=== PATIENT | female | born 1985 | race Native Hawaiian/Other Pacific Islander ===

== ENCOUNTER 2018-04-30 15:51 | Inpatient (IN) | payer BC, MEDICARE ==
[~2018-04-30] VITALS: Ht 162.6 cm; Wt 94.1 kg
[2018-04-30] MEDS ORDERED: LORazepam 2MG/ML-1ML VIAL IV ONE (16:00)
[2018-04-30] MEDS ORDERED: SODIUM CHLORIDE 0.9% 1,000 ML IV ONE (16:00)
[2018-04-30 16:52] LABS: Alanine Aminotransferase 20 U/L (13-56); Albumin 3.7 g/dL (3.4-5.0); Anion Gap 16 (5-15); Aspartate Aminotransferase 11 U/L (15-37); BUN/Creatinine Ratio 10.4; Blood Urea Nitrogen 10 mg/dL (7-18); Calcium 8.1 mg/dL (8.5-10.1); Carbon Dioxide 22 mmol/L (21-32); Chloride 106 mmol/L (98-107); GFR African American 88 mL/min; GFR Non-African American 73 mL/min; Glucose 62 mg/dL (74-106); Potassium 3.9 mmol/L (3.5-5.1); Sodium 144 mmol/L (136-145)
[2018-04-30 16:56] LABS: Alkaline Phosphatase 53 U/L (45-117); Bilirubin, Total 0.3 mg/dL (0.2-1.0); Total Protein 7.7 g/dL (6.4-8.2)
[2018-04-30 17:11] LABS: Basophils # (auto) 0.1 uL; Basophils % (auto) 0.7 % (0.0-2.0); Eosinophils # (auto) 0.2 uL; Eosinophils % (auto) 1.8 % (0.0-7.0); Hematocrit 29.6 % (36.0-46.0); Hemoglobin 8.6 g/dL (12.2-16.2); Lymphocytes # (auto) 1.5 uL; Lymphocytes % (auto) 15.8 % (10.0-50.0); Mean Corpuscular Hemoglobin 16.4 pg (28.0-32.0); Mean Corpuscular Volume 56.5 fL (80.0-100.0); Monocytes # (auto) 0.8 uL; Monocytes % (auto) 8.4 % (0.0-12.0); Neutrophils % (auto) 73.3 % (37.0-80.0); Nucleated Red Blood Cells % 0.1 %; Platelet Count (auto) 419 10^3/uL (140-450); Red Blood Cells 5.23 10^6/uL (4.0-5.20); White Blood Cell 9.5 10^3/uL (4.4-10.8)
[2018-04-30 17:15] LABS: Red Cell Distribution Width 21.8 % (11.8-14.3)
[2018-04-30] MEDS ORDERED: LORazepam 2MG/ML-1ML VIAL IV PRN (18:15)
[2018-04-30] MEDS ORDERED: MORPHINE SULF(PF) 0.5MG/ML 10ML VIAL IV PRN (18:15)
[2018-04-30] MEDS ORDERED: DEXTROSE (50%) 50ML SYRG IV PRN (18:15)
[2018-04-30] MEDS ORDERED: NITROGLYCERIN 0.4 MG SL TAB SL PRN (18:15)
[2018-04-30] MEDS: D5W/SOD CHLO 0.9% 1,000 ML IV SCH (19:42)
[2018-04-30] MEDS: ACCU-CHEK COMFORT CURVE STRIP VI SCH (20:00)
[2018-04-30 22:15] VITALS: BP 112/72
[2018-05-01] MEDS: ACCU-CHEK COMFORT CURVE STRIP VI SCH ×6 (01:38→21:00)
[2018-05-01 05:00] VITALS: BP 113/72
[2018-05-01 06:46] LABS: Cholesterol 106 mg/dL (< 200); HDL Cholesterol 38 mg/dL (40-59); LDL Cholesterol 68 mg/dL (< 100); Triglycerides 52 mg/dL (< 150)
[2018-05-01] MEDS: D5W/SOD CHLO 0.9% 1,000 ML IV SCH ×2 (07:35→20:55)
[2018-05-01 08:39] VITALS: BP 108/63
[2018-05-01] MEDS: PANTOPRAZOLE 40 MG TAB PO SCH (09:49)
[2018-05-01] MEDS ORDERED: LORazepam 2MG/ML-1ML VIAL IV PRN (10:00)
[2018-05-01] MEDS: LEVETIRACETAM 500 MG TAB PO SCH ×2 (11:14→21:12)
[2018-05-01] MEDS ORDERED: LEVETIRACETAM INJ 1,000 MG in D5W 5% 100 ML IV ONE (12:15)
[2018-05-01 12:32] VITALS: BP 114/67
[2018-05-01 17:00] VITALS: BP 106/68
[2018-05-01 22:00] VITALS: BP 121/72
[2018-05-01 22:06] LABS: Urine Bacteria FEW /hpf (None Seen); Urine Blood Negative /uL (Negative); Urine Specific Gravity 1.007 (1.001-1.035); Urine WBC 6 /hpf (0 - 5)
[2018-05-01 22:24] LABS: Alcohol, Urine < 3.0 mg/dL (0-5); Amphetamine Screen, Urine NEGATIVE (NEGATIVE); Barbiturate Scree,Urine NEGATIVE (NEGATIVE); Benzodiazephine Screen, Urine NEGATIVE (NEGATIVE); Cannabinoid Screen, Urine NEGATIVE (NEGATIVE); Cocaine Screen, Urine NEGATIVE (NEGATIVE); Opiate Scree,Urine NEGATIVE (NEGATIVE); Phencyclidine Screen, Urine NEGATIVE (NEGATIVE)
[2018-05-02] MEDS: D5W/SOD CHLO 0.9% 1,000 ML IV SCH ×2 (00:16→23:35)
[2018-05-02] MEDS: ACCU-CHEK COMFORT CURVE STRIP VI SCH ×6 (00:17→22:04)
[2018-05-02 05:16] VITALS: BP 117/73
[2018-05-02 08:15] LABS: Basophils # (auto) 0 uL; Eosinophils # (auto) 0.3 uL; Eosinophils % (auto) 3.9 % (0.0-7.0); Lymphocytes # (auto) 1.2 uL; Lymphocytes % (auto) 17.7 % (10.0-50.0); Monocytes # (auto) 0.7 uL; Neutrophils # (auto) 4.6 uL; Nucleated Red Blood Cells % 0.1 %; Platelet Count (auto) 355 10^3/uL (140-450)
[2018-05-02 08:18] LABS: Basophils % (auto) 0.7 % (0.0-2.0); Hematocrit 26.6 % (36.0-46.0); Hemoglobin 7.8 g/dL (12.2-16.2); Mean Corpuscular Hemoglobin 16.4 pg (28.0-32.0); Mean Corpuscular Hgb Conc. 29.3 g/dL (32.0-36.0); Monocytes % (auto) 10.4 % (0.0-12.0); Neutrophils % (auto) 67.3 % (37.0-80.0); Red Blood Cells 4.75 10^6/uL (4.0-5.20); White Blood Cell 6.9 10^3/uL (4.4-10.8)
[2018-05-02 08:26] LABS: BUN/Creatinine Ratio 10.3; Calcium 7.9 mg/dL (8.5-10.1); Potassium 3.5 mmol/L (3.5-5.1)
[2018-05-02 08:30] LABS: Red Cell Distribution Width 21.7 % (11.8-14.3)
[2018-05-02 09:00] VITALS: BP 100/60
[2018-05-02] MEDS ORDERED: SODIUM FERR GLUC 62.5MG/5ML 125 MG in SODIUM CHL 0.9% 100 ML IV ONE (09:30)
[2018-05-02 10:22] LABS: % Iron Saturation 5.6 % (15-50)
[2018-05-02] MEDS: LEVETIRACETAM 500 MG TAB PO SCH ×2 (12:13→22:03)
[2018-05-02] MEDS: DOCUSATE SOD 100 MG CAP PO SCH ×2 (12:13→22:03)
[2018-05-02] MEDS: PANTOPRAZOLE 40 MG TAB PO SCH (12:14)
[2018-05-02 12:44] VITALS: BP 105/49
[2018-05-02 17:00] VITALS: BP 100/46
[2018-05-02] MEDS: FERROUS SULFATE 325 MG TAB PO SCH (18:00)
[2018-05-02 22:07] VITALS: BP 130/67
[2018-05-03] MEDS: ACCU-CHEK COMFORT CURVE STRIP VI SCH ×6 (00:52→20:23)
[2018-05-03] MEDS: D5W/SOD CHLO 0.9% 1,000 ML IV SCH (04:19)
[2018-05-03 05:00] VITALS: BP 114/55
[2018-05-03 07:14] LABS: Basophils # (auto) 0 uL; Eosinophils # (auto) 0.3 uL; Lymphocytes # (auto) 1.2 uL; Monocytes # (auto) 0.7 uL; Neutrophils # (auto) 5.8 uL
[2018-05-03 07:16] LABS: Basophils % (auto) 0.3 % (0.0-2.0); Eosinophils % (auto) 3.4 % (0.0-7.0); Hematocrit 26.7 % (36.0-46.0); Lymphocytes % (auto) 15.3 % (10.0-50.0); Mean Corpuscular Hemoglobin 16.8 pg (28.0-32.0); Mean Corpuscular Hgb Conc. 29.8 g/dL (32.0-36.0); Mean Corpuscular Volume 56.2 fL (80.0-100.0); Monocytes % (auto) 8.6 % (0.0-12.0); Neutrophils % (auto) 72.4 % (37.0-80.0); Nucleated Red Blood Cells % 0.2 %; Platelet Count (auto) 364 10^3/uL (140-450); Red Blood Cells 4.75 10^6/uL (4.0-5.20)
[2018-05-03 07:22] LABS: Red Cell Distribution Width 21.5 % (11.8-14.3)
[2018-05-03 07:29] LABS: BUN/Creatinine Ratio 12.1; Calcium 8.3 mg/dL (8.5-10.1); Potassium 3.7 mmol/L (3.5-5.1)
[2018-05-03 08:00] VITALS: BP 107/64
[2018-05-03] MEDS: FERROUS SULFATE 325 MG TAB PO SCH ×2 (08:01→18:15)
[2018-05-03 09:00] VITALS: BP 107/64
[2018-05-03] MEDS: PANTOPRAZOLE 40 MG TAB PO SCH (10:00)
[2018-05-03] MEDS: DOCUSATE SOD 100 MG CAP PO SCH ×2 (10:01→21:39)
[2018-05-03] MEDS: LEVETIRACETAM 500 MG TAB PO SCH ×2 (10:01→21:39)
[2018-05-03 12:37] VITALS: BP 115/67
[2018-05-03 17:58] VITALS: BP 115/72
[2018-05-03 22:00] VITALS: BP 110/69
[2018-05-04] MEDS: ACCU-CHEK COMFORT CURVE STRIP VI SCH ×4 (00:13→12:00)
[2018-05-04] MEDS: D5W/SOD CHLO 0.9% 1,000 ML IV SCH (04:46)
[2018-05-04 05:00] VITALS: BP 112/60
[2018-05-04 06:45] LABS: Basophils # (auto) 0 uL; Eosinophils # (auto) 0.3 uL; Hemoglobin 8.3 g/dL (12.2-16.2); Mean Corpuscular Hgb Conc. 30.2 g/dL (32.0-36.0); Monocytes # (auto) 0.7 uL; Neutrophils # (auto) 6.1 uL
[2018-05-04 06:47] LABS: Basophils % (auto) 0.4 % (0.0-2.0); Eosinophils % (auto) 3.5 % (0.0-7.0); Hematocrit 27.6 % (36.0-46.0); Lymphocytes % (auto) 12.9 % (10.0-50.0); Mean Corpuscular Hemoglobin 16.9 pg (28.0-32.0); Mean Corpuscular Volume 56.1 fL (80.0-100.0); Monocytes % (auto) 8.2 % (0.0-12.0); Nucleated Red Blood Cells % 0.2 %; Platelet Count (auto) 373 10^3/uL (140-450); Red Blood Cells 4.91 10^6/uL (4.0-5.20); White Blood Cell 8.1 10^3/uL (4.4-10.8)
[2018-05-04 06:51] LABS: Red Cell Distribution Width 21.4 % (11.8-14.3)
[2018-05-04 06:53] LABS: Calcium 8.2 mg/dL (8.5-10.1); Potassium 3.5 mmol/L (3.5-5.1)
[2018-05-04] MEDS: LEVETIRACETAM 500 MG TAB PO SCH (08:21)
[2018-05-04] MEDS: FERROUS SULFATE 325 MG TAB PO SCH (08:21)
[2018-05-04] MEDS: DOCUSATE SOD 100 MG CAP PO SCH (08:21)
[2018-05-04] MEDS: PANTOPRAZOLE 40 MG TAB PO SCH (08:22)
[2018-05-04 08:56] VITALS: BP 113/50
[2018-05-04 12:26] VITALS: BP 106/64
== END 2018-05-04 14:00 | disposition home or self-care (01) | DRG 101 ==
LOC: ER 15:51 → TELE 15:52 → TELE-WESTW 22:05
PROVIDERS: ADMIT Internal Medicine; ATTEND Internal Medicine
DX: G40.401 Other generalized epilepsy and epileptic syndromes, not intractable, with status epilepticus (principal); R32 Unspecified urinary incontinence; E11.649 Type 2 diabetes mellitus with hypoglycemia without coma; Z83.3 Family history of diabetes mellitus; D50.9 Iron deficiency anemia, unspecified; F79 Unspecified intellectual disabilities; E66.9 Obesity, unspecified; Z68.35 Body mass index [BMI] 35.0-35.9, adult; Z79.899 Other long term (current) drug therapy
CPT/HCPCS: 36415; 70450; 70551; 71045; 80048; 80053; 80061; 80307; 81001; 82728; 82962; 83036; 83540; 83550; 84484; 85025; 85045; 85652; 95819; 96361; 96374; J7042; J7060